=== PATIENT | male | born 1990 | race Caucasian/White ===

== ENCOUNTER 2018-09-19 18:33 | Emergency (ER) | payer BC, OTHER ==
[~2018-09-19 18:33] MED LIST: ACE3 PO; AMOX-556 PO; CEP500 PO; CEPH500T7 PO; CYCL10TA29 PO; DIVA250T33 PO; IBU800 PO; IBUP50DR47 PO; KET10 PO; LOR5 PO; LOR5/325 PO; MEDROL DOSEPAK; PER PO
--- NOTE | 2018-09-19 18:36 | ER Report ---
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 He was seen [facility]. They prescribed Robaxin and mobile back anti-inflammatory. He states is a not been helping. He's been barely unable to get out of bed due to the severity of the pain. He points to his left sacroiliac joint and his left sciatic nerve. Patient states she's had previous MRIs and CTs which are unremarkable for significant disease of his lower back. Patient notes no saddle anesthesia or incontinence. Patient denies dysuria. REVIEW OF SYSTEMS: Respiratory: No cough, no dyspnea. Cardiovascular: No chest pain, no palpitations. Gastrointestinal: No vomiting, no abdominal pain. Musculoskeletal: As above Allergies: Coded Allergies: red dye (Verified Allergy, Mild, HYPERACTIVE, 02/28/17) lactose (Verified Adverse Reaction, Mild, 02/28/17) Home Meds Active Scripts Oxycodone Hcl/Acetaminophen (PERCOCET 5-325 MG TABLET) 1 Each Tablet, 1 EACH PO Q4-6H PRN for PAIN, #20 Prov:NENA GREENWOOD DO 09/19/18 Prednisone (PREDNISONE) 20 Mg Tablet, 20 MG PO QDAY for reduce back inflammation, #12 Take 2 tablets once daily for 4 days, then 1 tablet once daily for 4 days Prov:LAZARO GREENWOODVíctor Goodrich DO 09/19/18 Reported Medications Methocarbamol (METHOCARBAMOL) 750 Mg Tablet, 750 MG PO QID 09/19/18 Meloxicam (MOBIC) 7.5 Mg Tablet, 7.5 MG PO QDAY 09/19/18 Divalproex Sodium (DIVALPROEX SODIUM) 250 Mg Tablet.dr, 250 MG PO BID, TAB 02/28/17 Discontinued Scripts Ketorolac Tromethamine (KETOROLAC TROMETHAMINE) 10 Mg Tab, 10 MG PO Q6H PRN for PAIN, #12 TAB 0 Refills Prov:MARGARITA HERNANDEZ MD 02/28/17 Hydrocodone Bit/Acetaminophen (HYDROCODON-ACETAMINOPHEN 5-325) 1 Each Tablet, 1 EACH PO Q4H PRN for PAIN, #12 TAB 0 Refills Prov:MAGRARITA HERNANDEZ MD 02/28/17 Cephalexin 500 Mg Tab (KEFLEX 500 MG TAB) 500 Mg Tablet, 500 MG PO Q6H for 7 Days, #28 TAB Prov:MARGARITA HERNANDEZ MD 02/28/17 Reviewed Nurses Notes: Yes Old Medical Records Reviewed: Yes Hx Smoking: No Smoking Status: Never Smoker Hx Substance Use Disorder: No Hx Alcohol Use: Yes (OCC) Constitutional Vital Sign - Last 24 Hours 09/19/18 09/19/18 18:39 18:48 Temp 98.0 Pulse 77 67 Resp 16 B/P (MAP) 119/104 Pulse Ox 94 93 O2 Delivery Room Air Room Air Physical Exam Vital signs stable, afebrile, pulse ox normal General Appearance: The patient is alert, has no immediate need for airway protection and no current signs of toxicity. Mild distress Eyes: Pupils equal and round no injection. Respiratory: Chest is non tender, lungs are clear to auscultation. Cardiac: regular rate and rhythm Gastrointestinal: Abdomen is soft and non tender, no masses, bowel sounds normal. Musculoskeletal: Neck: Neck is supple and non tender. Back: There is tenderness on the left sacroiliac joint. There is tenderness over the course of the sciatic nerve. Extremities have full range of motion and are non tender. Negative straight-leg raise bilaterally, no pain with manipulation of the hip joints Joanna maneuver Skin: No rashes or lesions. DIFFERENTIAL DIAGNOSIS: After history and physical exam differential diagnosis was considered for back pain including but not limited to muscular pain, herniated disc, spine fracture, intra-abdominal causes and urinary tract infection. Medical Decision Making ED Course/Re-evaluation ED Course Patient was admitted to an examination room. H&P was done. The dental diagnoses was considered. On clinical examination. Patient has acute low back pain for over one week. Patient has no focal neurologic findings. Patient be placed on prednisone for steroid taper. He'll be given a limited supply of Percocet pain relievers. [facility] Also advised to consider chiropractic treatment. Patient was also given information follow-up with Dr. Buck Mcdonald spinal surgeon if his symptoms do not improve. Decision to Disposition Date: Sep 19, 2018 Decision to Disposition Time: 18:47 Depart Departure Latest Vital Signs Vital Signs Date Time Temp Pulse Resp B/P (MAP) Pulse Ox O2 Delivery O2 Flow Rate FiO2 09/19/18 18:48 67 93 Room Air 09/19/18 18:39 98.0 16 119/104 Impression: Primary Impression: Sacroiliitis Additional Impression: Sciatica of left side Condition: Improved Disposition: HOME OR SELF-CARE Referrals: JAZ MESA (PCP) BUCK MCDONALD MD New Scripts Oxycodone Hcl/Acetaminophen (PERCOCET 5-325 MG TABLET) 1 Each Tablet 1 EACH PO Q4-6H PRN for PAIN, #20 Prov: NENA GREENWOOD DO 09/19/18 Prednisone (PREDNISONE) 20 Mg Tablet 20 MG PO QDAY for reduce back inflammation, #12 Take 2 tablets once daily for 4 days, then 1 tablet once daily for 4 days Prov: NENA GREENWOOD DO 09/19/18 Patient Instructions: Acute Low Back Pain (ED), Sciatica (ED) Additional Instructions: Continue to take Mobic and Robaxin Will and a prednisone taper and Percocet for additional pain relief [facility] You may also want to call and get a follow-up appointment with Dr. Buck Baptiste spinal surgeon for evaluation Problem Qualifiers NENA GREENWOOD DO Sep 19, 2018 18:36
[2018-09-19 18:39] VITALS: BP 119/104
[2018-09-19] MEDS ORDERED: METH-280 PO (18:50)
[2018-09-19] MEDS ORDERED: MELO-149 PO (18:50)
[2018-09-19] MEDS ORDERED: OXYC-865 PO (18:52)
[2018-09-19] MEDS ORDERED: PRED20TA6 PO (18:52)
== END 2018-09-19 19:02 | disposition home or self-care (01) ==
LOC: ER 18:39
DX: M46.1 Sacroiliitis, not elsewhere classified (principal); M54.32 Sciatica, left side
CPT/HCPCS: 99281